=== PATIENT | male | born 1960 | race African-American/Black ===

== ENCOUNTER 2021-04-22 06:39 | Inpatient (IN) | payer OTHER ==
[2021-04-22 08:18] LABS: BASO % 0.6 % (0-2.0); EOS % 0.9 % (0-4.5); HEMOGLOBIN 14.2 GM/dL (11.7-16.9); LYMPH % 22.2 % (8-40); MCHC 34.6 g/dl (32.0-35.9); MEAN CELL VOLUME 80.9 fl (80-96); MEAN PLT VOLUME 8.2 fl (7.5-11.1); MONO % 7.3 % (3.8-10.2); PLATELET COUNT 229 10^3/uL (134-434); RBC 5.07 M/mm3 (4.00-5.60); RDW 14.9 % (11.9-15.9); WHITE BLOOD COUNT 5.7 K/mm3 (4.0-10.0)
[2021-04-22 08:20] LABS: INR 1.04 (0.83-1.09); PROTHROMBIN TIME (PATIENT) 12.8 SEC (9.7-13.0)
[2021-04-22 08:23] LABS: ACTIVATED PTT 33.8 SECONDS (25.2-36.5)
[2021-04-22 08:40] LABS: CHLORIDE 106 mmol/L (98-107); SODIUM 140 mmol/L (136-145)
[2021-04-22] MEDS ORDERED: ASPIRIN 81 MG CHEWABLE TABLETS PO ONE (08:42)
[2021-04-22 08:43] LABS: ALBUMIN 4.2 g/dl (3.4-5.0); ANION GAP 9 MMOL/L (8-16); BLOOD UREA NITROGEN 11.5 mg/dL (7-18); CALCIUM 9.1 mg/dL (8.5-10.1); CO2 25 mmol/L (21-32)
[2021-04-22 08:44] LABS: GLUCOSE,RANDOM 251 mg/dL (74-106)
[2021-04-22 08:46] LABS: CHOLESTEROL 304 mg/dL (50-200); SGOT/AST 15 U/L (15-37); SGPT/ALT 24 U/L (13-61)
[2021-04-22 08:47] LABS: CREATININE 1.3 mg/dL (0.55-1.3); TRIGLYCERIDES 176 mg/dL (0-150)
[2021-04-22 08:48] LABS: BILIRUBIN,TOTAL 0.7 mg/dL (0.2-1); LDL CHOLESTEROL (ONLY SJRH) 213 mg/dL (5-100); TOT PROT 7.8 g/dl (6.4-8.2)
[2021-04-22 08:49] LABS: ALK PHOS 76 U/L (45-117); HDL CHOLESTEROL 46 mg/dL (40-60)
[2021-04-22] MEDS ORDERED: HYDROCHLOROTHIAZIDE 25 MG TABLET (FP) PO ONE (09:26)
[2021-04-22] MEDS: SODIUM CHLORIDE 1,000 ML IV SCH (09:27)
[2021-04-22] MEDS ORDERED: ASPIRIN 81 MG CHEWABLE TABLETS ONE (09:47)
[2021-04-22] MEDS ORDERED: HYDROCHLOROTHIAZIDE 25 MG TABLET (FP) ONE (11:23)
[2021-04-22] MEDS: amLODIPine BESYLATE 10 MG TABLET (FP) PO SCH (13:14)
[2021-04-22] MEDS: LISINOPRIL 20 MG TABLET PO SCH (17:05)
[2021-04-22 18:09] VITALS: BMI 27.1
[2021-04-22] MEDS: ATORVASTATIN CA 80 MG TABLET (FP) PO SCH (21:44)
[2021-04-22] MEDS: INSULIN (LEVEMIR) 100 UNITS/ML UNITS SQ SCH (21:44)
[2021-04-23] MEDS: INSULIN (LEVEMIR) 100 UNITS/ML UNITS SQ SCH ×2 (06:38→22:15)
[2021-04-23 06:57] LABS: CHLORIDE 108 mmol/L (98-107); SODIUM 143 mmol/L (136-145)
[2021-04-23 07:05] LABS: ALBUMIN 3.7 g/dl (3.4-5.0); ANION GAP 9 MMOL/L (8-16); BLOOD UREA NITROGEN 10.8 mg/dL (7-18); CALCIUM 9.1 mg/dL (8.5-10.1); CO2 25 mmol/L (21-32); GLUCOSE,RANDOM 165 mg/dL (74-106)
[2021-04-23 07:08] LABS: CREATININE 1.2 mg/dL (0.55-1.3); SGOT/AST 12 U/L (15-37); SGPT/ALT 19 U/L (13-61)
[2021-04-23 07:09] LABS: TOT PROT 7.2 g/dl (6.4-8.2)
[2021-04-23 07:11] LABS: ALK PHOS 70 U/L (45-117); BILIRUBIN,TOTAL 0.6 mg/dL (0.2-1)
[2021-04-23 07:42] LABS: BASO % 0.5 % (0-2.0); EOS % 1.8 % (0-4.5); HEMATOCRIT 40.8 % (35.4-49); MCH 27.9 pg (25.7-33.7); MCHC 34.4 g/dl (32.0-35.9); MEAN CELL VOLUME 81.1 fl (80-96); MEAN PLT VOLUME 8.4 fl (7.5-11.1); MONO % 8.4 % (3.8-10.2); NEUT % 58.3 % (42.8-82.8); PLATELET COUNT 239 10^3/uL (134-434); RBC 5.02 M/mm3 (4.00-5.60); RDW 15.1 % (11.9-15.9); WHITE BLOOD COUNT 5.8 K/mm3 (4.0-10.0)
[2021-04-23] MEDS ORDERED: INSULIN (LEVEMIR) 100 UNITS/ML UNITS SQ ONE (07:50)
[2021-04-23] MEDS ORDERED: INSULIN SLIDING SCALE (NOVOLOG) 1 VIAL SQ ONE (07:50)
[2021-04-23] MEDS: SODIUM CHLORIDE 1,000 ML IV SCH (08:13)
[2021-04-23 09:19] LABS: COCAINE, UR NEGATIVE (NEGATIVE); OPIATES, URI NEGATIVE (NEGATIVE); URINE AMPHETAMINES NEGATIVE (NEGATIVE)
[2021-04-23 09:20] LABS: METHADONE, UR NEGATIVE (NEGATIVE); PHENCYCLIDINE,URINE NEGATIVE (NEGATIVE); URINE BARBITURATES NEGATIVE (NEGATIVE); URINE BENZODIAZEPINES NEGATIVE (NEGATIVE)
[2021-04-23] MEDS: amLODIPine BESYLATE 10 MG TABLET (FP) PO SCH (09:42)
[2021-04-23] MEDS: LISINOPRIL 20 MG TABLET PO SCH (09:42)
[2021-04-23] MEDS ORDERED: NITROGLYCERIN 2% OINTMENT - 1GM PACKET TD PRN (12:44)
[2021-04-23] MEDS: metoPROLOL SUCCINATE 25 MG TAB.SR.24H (FP) PO SCH (12:55)
[2021-04-23] MEDS: FUROSEMIDE 20 MG TABLET (FP) PO SCH (16:26)
[2021-04-23] MEDS: ATORVASTATIN CA 80 MG TABLET (FP) PO SCH (22:16)
[2021-04-23] MEDS: INSULIN SLIDING SCALE (NOVOLOG) 1 VIAL SQ SCH (22:16)
[2021-04-24] MEDS: INSULIN (LEVEMIR) 100 UNITS/ML UNITS SQ SCH ×2 (06:26→21:41)
[2021-04-24] MEDS: INSULIN SLIDING SCALE (NOVOLOG) 1 VIAL SQ SCH ×4 (06:26→21:41)
[2021-04-24 07:13] LABS: BASO % 0.7 % (0-2.0); EOS % 2.2 % (0-4.5); HEMATOCRIT 43.1 % (35.4-49); HEMOGLOBIN 14.6 GM/dL (11.7-16.9); LYMPH % 34.4 % (8-40); MCH 27.6 pg (25.7-33.7); MCHC 33.9 g/dl (32.0-35.9); MEAN CELL VOLUME 81.3 fl (80-96); MEAN PLT VOLUME 8.4 fl (7.5-11.1); MONO % 7.3 % (3.8-10.2); NEUT % 55.4 % (42.8-82.8); PLATELET COUNT 247 10^3/uL (134-434); RBC 5.31 M/mm3 (4.00-5.60); RDW 15.2 % (11.9-15.9); WHITE BLOOD COUNT 5.7 K/mm3 (4.0-10.0)
[2021-04-24 07:39] LABS: ALBUMIN 3.7 g/dl (3.4-5.0); BLOOD UREA NITROGEN 11.9 mg/dL (7-18); CALCIUM 8.8 mg/dL (8.5-10.1); MAGNESIUM 2.1 mg/dL (1.8-2.4)
[2021-04-24 07:42] LABS: CREATININE 1.2 mg/dL (0.55-1.3)
[2021-04-24 07:43] LABS: PHOSPHOROUS 4.3 mg/dL (2.5-4.9)
[2021-04-24 07:44] LABS: BILIRUBIN,TOTAL 0.7 mg/dL (0.2-1); TOT PROT 7.3 g/dl (6.4-8.2)
[2021-04-24] MEDS: SODIUM CHLORIDE 1,000 ML IV SCH (07:56)
[2021-04-24] MEDS: amLODIPine BESYLATE 10 MG TABLET (FP) PO SCH (09:51)
[2021-04-24] MEDS: LISINOPRIL 20 MG TABLET PO SCH (09:51)
[2021-04-24] MEDS: FUROSEMIDE 20 MG TABLET (FP) PO SCH (09:51)
[2021-04-24] MEDS: ENOXAPARIN NA (PORCINE) 40 MG/0.4 ML DISP.SYRIN SQ SCH (09:51)
[2021-04-24] MEDS: metoPROLOL SUCCINATE 25 MG TAB.SR.24H (FP) PO SCH (09:51)
[2021-04-24] MEDS: hydrALAZINE HCL 25 MG TABLET (FP) PO SCH ×2 (15:14→21:41)
[2021-04-24] MEDS ORDERED: CYANOCOBALAMIN (VITAMIN B-12) 1000 MCG/1 ML VIAL IM ONE (17:04)
[2021-04-24] MEDS: ATORVASTATIN CA 80 MG TABLET (FP) PO SCH (21:41)
[2021-04-25] MEDS: INSULIN SLIDING SCALE (NOVOLOG) 1 VIAL SQ SCH ×2 (06:42→11:27)
[2021-04-25] MEDS: INSULIN (LEVEMIR) 100 UNITS/ML UNITS SQ SCH (06:42)
[2021-04-25 07:11] LABS: BASO % 0.4 % (0-2.0); EOS % 1.6 % (0-4.5); HEMATOCRIT 43.7 % (35.4-49); LYMPH % 30.9 % (8-40); MCH 27.8 pg (25.7-33.7); MCHC 34.3 g/dl (32.0-35.9); MEAN PLT VOLUME 8.5 fl (7.5-11.1); MONO % 7.5 % (3.8-10.2); NEUT % 59.6 % (42.8-82.8); PLATELET COUNT 250 10^3/uL (134-434); RDW 15.1 % (11.9-15.9); WHITE BLOOD COUNT 7.2 K/mm3 (4.0-10.0)
[2021-04-25 07:40] LABS: ALBUMIN 3.7 g/dl (3.4-5.0); BLOOD UREA NITROGEN 14.2 mg/dL (7-18)
[2021-04-25 07:41] LABS: CALCIUM 9.1 mg/dL (8.5-10.1); MAGNESIUM 2.1 mg/dL (1.8-2.4)
[2021-04-25 07:43] LABS: CREATININE 1.2 mg/dL (0.55-1.3); PHOSPHOROUS 4.8 mg/dL (2.5-4.9)
[2021-04-25 07:45] LABS: BILIRUBIN,TOTAL 1.2 mg/dL (0.2-1); TOT PROT 7.3 g/dl (6.4-8.2)
[2021-04-25] MEDS: hydrALAZINE HCL 25 MG TABLET (FP) PO SCH (09:21)
[2021-04-25] MEDS: amLODIPine BESYLATE 10 MG TABLET (FP) PO SCH (09:21)
[2021-04-25] MEDS: metoPROLOL SUCCINATE 25 MG TAB.SR.24H (FP) PO SCH (09:21)
[2021-04-25] MEDS: ENOXAPARIN NA (PORCINE) 40 MG/0.4 ML DISP.SYRIN SQ SCH (09:21)
[2021-04-25] MEDS: LISINOPRIL 20 MG TABLET PO SCH (09:21)
[2021-04-25 12:49] VITALS: BP 143/98; PULSE 85; TEMP 99.1
== END 2021-04-25 15:26 | disposition home or self-care (01) | DRG 47 ==
LOC: JER 06:39 → JERBED 09:35 → J4S 15:23
PROVIDERS: ATTEND Student in an Organized Health Care Education/Training Program
DX: G45.9 Transient cerebral ischemic attack, unspecified (principal); I16.0 Hypertensive urgency; E78.5 Hyperlipidemia, unspecified; E11.9 Type 2 diabetes mellitus without complications; E03.9 Hypothyroidism, unspecified; M10.9 Gout, unspecified; I10 Essential (primary) hypertension; I44.0 Atrioventricular block, first degree
CPT/HCPCS: 36415; 70450-TC; 70551-TC; 76775-TC; 80053; 80061; 80307; 82550; 82553; 82607; 82962; 83036; 83721; 83735; 84100; 84443; 84484; 85025; 85610; 85730; 86780; 86850; 86900; 86901; 93005; 93010; 93306-TC; 93880-TC; 97116-GP; 97161-GP; 99285-25; C9803; U0003; U0005